=== PATIENT | female | born 1990 | race Caucasian/White ===

== ENCOUNTER → 2018-03-15 | Outpatient (CLI) | payer SELFPAY ==
--- NOTE | 2018-03-15 12:28 | RADIOLOGY IMAGING REPORT ---
FACILITY: [facility] - [place] PATIENT NAME: Fior Prasad : 1990 MR: [id number] V: [id number] EXAM DATE: ORDERING PHYSICIAN: DILEEP GUTIERREZ TECHNOLOGIST: Location: [facility] Patient: Fior Prasad : 1990 Visit/Account:[id number] Date of Sevice: 03/15/2018 Technique: Transvaginal and transabdominal ultrasound of the pelvis. FINDINGS: The study demonstrates what appears to be a complete bicornuate uterus which is retroflexed with the right horn being smaller and more superior and the left horn being larger and projecting in the deepe r posterior inferior aspect of the pelvis. The right endometrial stripe is 2.7 mm. Left endometrial stripe is 5.7 mm. No fluid. No endometria l mass lesions. Right ovary measures 2.5 x 2.1 x 2.4 cm in size. There are multiple normal-appearing follicles. Lef t ovary measures 2.6 x 2.2 x 2.9 cm. There are multiple normal follicles. Largest measures approxim ately 1 x 1.5 cm. IMPRESSION: 1. Study demonstrates what appears to be a complete bicornuate uterus with uterine horn position and measurements as described. Report Dictated By: Boris Hinton MD at 03/15/2018 11:57 AM Report E-Signed By: Boris Hinton MD at 03/15/2018 12:25 PM WSN:[email or web address]
== END ==
LOC: US 08:33
PROVIDERS: ATTEND Physician Assistant Medical
DX: Q51.3 Bicornate uterus (principal)
CPT/HCPCS: 76856